=== PATIENT | male | born 1990 | race Two or more races ===

== ENCOUNTER 2019-03-02 04:51 | Inpatient (IN) | payer BC, MEDICAID ==
[~2019-03-02] VITALS: Ht 165.1 cm; Wt 86.2 kg
[2019-03-02 06:05] LABS: Basophils # (auto) 0 uL; Basophils % (auto) 0.8 % (0.0-2.0); Eosinophils # (auto) 0.2 uL; Eosinophils % (auto) 3.8 % (0.0-7.0); Hematocrit 44.2 % (41.0-53.0); Hemoglobin 15.5 g/dL (13.5-17.5); Lymphocytes # (auto) 1.8 uL; Mean Corpuscular Hemoglobin 29.8 pg (28.0-32.0); Mean Corpuscular Hgb Conc. 35.1 g/dL (32.0-36.0); Mean Corpuscular Volume 84.9 fL (80.0-100.0); Monocytes # (auto) 0.4 uL; Monocytes % (auto) 7.9 % (0.0-12.0); Neutrophils # (auto) 3.1 uL; Neutrophils % (auto) 55.5 % (37.0-80.0); Nucleated Red Blood Cells % 0.1 %; Platelet Count (auto) 266 10^3/uL (140-450); Red Cell Distribution Width 13.4 % (11.8-14.3); White Blood Cell 5.5 10^3/uL (4.4-10.8)
[2019-03-02 06:34] LABS: Albumin 4.7 g/dL (3.4-5.0); Calcium 9.7 mg/dL (8.5-10.1); Potassium 3.6 mmol/L (3.5-5.1)
[2019-03-02 06:38] LABS: BUN/Creatinine Ratio 23.1; Bilirubin, Total 0.4 mg/dL (0.2-1.0); Total Protein 8.8 g/dL (6.4-8.2)
[2019-03-02] MEDS ORDERED: SODIUM CHLORIDE 0.9% 1,000 ML IV ONE (07:45)
[2019-03-02] MEDS ORDERED: cefTRIAXone 1GM/50ML D5W 50 ML IV ONE (08:15)
[2019-03-02] MEDS ORDERED: ONDANSETRON HCL 4 MG/2 ML VIAL IV ONE (09:30)
[2019-03-02] MEDS ORDERED: MORPHINE SULF INJ 2 MG/ML SYRINGE 1ML IV ONE (09:30)
[2019-03-02] MEDS ORDERED: ACETAMINOPHEN 500 MG TAB PO PRN (09:45)
[2019-03-02] MEDS ORDERED: SOD CHL 0.9%/ KCL 20MEQ 1,000 ML IV SCH (09:45)
[2019-03-02] MEDS ORDERED: NITROGLYCERIN 0.4 MG SL TAB SL PRN (09:45)
[2019-03-02] MEDS ORDERED: MORPHINE SULF INJ 2 MG/ML SYRINGE 1ML IV PRN ×2 (09:45)
[2019-03-02] MEDS ORDERED: HYDROcodone-ACET 5/325MG TAB PO PRN (09:45)
[2019-03-02] MEDS ORDERED: ONDANSETRON HCL 4 MG/2 ML VIAL IV PRN (09:45)
[2019-03-02] MEDS ORDERED: FAMOTIDINE 20 MG TAB PO SCH (10:00)
[2019-03-02 13:00] VITALS: BP 128/83
[2019-03-02] MEDS ORDERED: metroNIDAZOLE 500MG/100ML 100 ML IV SCH (14:00)
--- NOTE | 2019-03-02 14:05 | NUR ---
AMA Note MARIKA CARDENAS states they want to leave the hospital Against Medical Advice (AMA). Patient encouraged to stay for further treatment/stabilization. MUNIRA DENNY MD notified of patient's wishes. Patient advised of the risks and benefits of leaving AMA. Patient verbalized understanding. Patient encouraged to return to the ER if symptoms do not improve or worsen.
--- NOTE | 2019-03-02 14:07 | NUR ---
COULD NOT OBTAIN INFORMATION FOR THE PATIENT'S ADMISSION. HE INFORMED ME THAT HE DOESN'T NEED TO ANSWER QUESTIONS BECAUSE HE PLANS ON LEAVING THE HOSPITAL AGAINST MEDICAL ADVICE.
[2019-03-03] MEDS ORDERED: LEVOFLOXACIN 500MG 100 ML IV SCH (10:00)
== END 2019-03-02 13:42 | disposition left against medical advice (07) | DRG 446 ==
LOC: ER 04:51 → OVERFLOW 04:52 → CENTRAL 11:25
PROVIDERS: ADMIT Nurse Practitioner Acute Care; ATTEND Nurse Practitioner Acute Care
DX: K81.0 Acute cholecystitis (principal); E66.9 Obesity, unspecified; Z68.31 Body mass index [BMI] 31.0-31.9, adult; K82.8 Other specified diseases of gallbladder; Z53.21 Procedure and treatment not carried out due to patient leaving prior to being seen by health care provider; F14.10 Cocaine abuse, uncomplicated; Z88.0 Allergy status to penicillin; Z88.1 Allergy status to other antibiotic agents
CPT/HCPCS: 36415; 74176; 76705; 80053; 82150; 83690; 85025; 86850; 86900; 86901; G0378; J0696

== ENCOUNTER 2019-03-19 10:59 | Inpatient (IN) | payer BC, MEDICAID ==
[~2019-03-19] VITALS: Ht 165.1 cm; Wt 80.2 kg
[2019-03-19] MEDS ORDERED: SODIUM CHLORIDE 0.9% 1,000 ML IVB ONE (11:14)
[2019-03-19] MEDS ORDERED: PROCHLORPERAZINE EDISYLATE 5 MG/ML 2ML VIAL IV ONE ×2 (11:15→13:45)
[2019-03-19] MEDS ORDERED: HYDROmorphone HCL 2 MG/ML VL IV ONE ×2 (11:15→13:45)
[2019-03-19] MEDS ORDERED: FAMOTIDINE (10MG/ML) 2ML VL IV ONE (11:15)
[2019-03-19 12:23] LABS: Basophils # (auto) 0 uL; Basophils % (auto) 0.4 % (0.0-2.0); Eosinophils # (auto) 0.1 uL; Eosinophils % (auto) 2.3 % (0.0-7.0); Hematocrit 42.9 % (41.0-53.0); Hemoglobin 14.8 g/dL (13.5-17.5); Lymphocytes # (auto) 1.2 uL; Lymphocytes % (auto) 19.7 % (10.0-50.0); Mean Corpuscular Hemoglobin 29.6 pg (28.0-32.0); Mean Corpuscular Hgb Conc. 34.5 g/dL (32.0-36.0); Mean Corpuscular Volume 85.7 fL (80.0-100.0); Monocytes # (auto) 0.4 uL; Monocytes % (auto) 6.5 % (0.0-12.0); Neutrophils # (auto) 4.4 uL; Neutrophils % (auto) 71.1 % (37.0-80.0); Nucleated Red Blood Cells % 0.1 %; Platelet Count (auto) 209 10^3/uL (140-450); Red Cell Distribution Width 13.4 % (11.8-14.3); White Blood Cell 6.2 10^3/uL (4.4-10.8)
[2019-03-19 12:36] LABS: Potassium 3.7 mmol/L (3.5-5.1)
[2019-03-19 12:45] LABS: Albumin 4.2 g/dL (3.4-5.0); BUN/Creatinine Ratio 15.6; Calcium 9.2 mg/dL (8.5-10.1); Total Protein 7.8 g/dL (6.4-8.2)
[2019-03-19] MEDS ORDERED: MORPHINE SULF INJ 2 MG/ML SYRINGE 1ML IV ONE (13:00)
[2019-03-19] MEDS ORDERED: metroNIDAZOLE 500MG/100ML 100 ML IV ONE (14:15)
[2019-03-19] MEDS ORDERED: LORazepam 2MG/ML-1ML VIAL IV ONE (14:30)
[2019-03-19] MEDS ORDERED: cefTRIAXone 1GM/50ML D5W 50 ML IV ONE (14:30)
[2019-03-19] MEDS ORDERED: SODIUM CHLORIDE 0.9% 1,000 ML IV SCH (14:30)
--- NOTE | 2019-03-19 16:00 | NUR ---
MS admit from ER CARDENASMARIKA BLOOD admitted to tele/MS after SBAR received at bedside participated in admission assessment. Patient oriented to ROSARIO WANG, RN primary RN, unit, room, bed, and unit policies regarding patient care and visiting hours. Patient weighed by bedscale and encouraged to call if they need something. All questions and concerns addressed, patient verbalized understanding. Note:
[2019-03-19 16:25] VITALS: BP 159/87
--- NOTE | 2019-03-19 16:25 | NUR ---
pt states he takes no home medications, denies any previous medical history other than previous admission with jonelle and leaving against medical advice, pt states he smokes weed 2-3 times/day and admitted to using cocaine x3 days ago prefered pharmacy confirmed. password INSURANCE [facility] [phone]
[2019-03-19 16:31] VITALS: BP 159/87
[2019-03-19] MEDS: SODIUM CHLORIDE 0.9% 1,000 ML IV SCH ×2 (17:24→22:51)
[2019-03-19] MEDS: MORPHINE SULF INJ 2 MG/ML SYRINGE 1ML IV PRN ×2 (18:24→22:00)
[2019-03-19] MEDS: ONDANSETRON HCL 4 MG/2 ML VIAL IV PRN ×2 (18:25→22:00)
--- NOTE | 2019-03-19 19:32 | NUR ---
OPENING SHIFT NOTE Assumed care of patient who is alert and oriented. Currently on room air with no s/s of SOB/distress or pain. Bed is in low locked position with side rails up x2. Call light is within reach. Patient encouraged to call for assistance when needed. Will continue to monitor for changes PRN.
[2019-03-19 20:00] VITALS: BP 147/73
--- NOTE | 2019-03-19 21:00 | NUR ---
PENDING UA/TOX PATIENT REMINDED THE NEED TO COLLECT URINE SAMPLE SAMPLE STERILE CONTAINER AT BED SIDE PATIENT VERBALIZES UNDERSTANDING
--- NOTE | 2019-03-19 21:30 | NUR ---
PAIN PATIENT VERBALIZES UPPER ABDOMINAL PAIN, NON RADIATING AND RATING IT 10/10. WILL ASSESS AND MEDICATE PER ORDER.
[2019-03-19 22:00] VITALS: BP 147/73
[2019-03-19] MEDS: metroNIDAZOLE 500MG/100ML 100 ML IV SCH (22:00)
--- NOTE | 2019-03-19 22:00 | NUR ---
PATIENT REQUESTING A MEAL PATIENT STATES "I AM HUNGRY AND NEED AT LEAST ONE MEAL, I HAVEN'T EATEN ALL DAY!" EDUCATION ON NPO STATUS AND REASONS BEHIND DIET ORDER PROVIDED, PATIENT VISIBLY UPSET, HOWEVER VERBALIZES UNDERSTANDING. WILL REINFORCE EDUCATION NEEDED.
[2019-03-20] VITALS (7 sets, daily range): BP systolic 136–147; BP diastolic 73–85
[2019-03-20] MEDS: traMADol HCL 50 MG TAB PO PRN (00:42)
[2019-03-20] MEDS: MORPHINE SULF INJ 2 MG/ML SYRINGE 1ML IV PRN ×5 (02:38→21:37)
[2019-03-20] MEDS: ONDANSETRON HCL 4 MG/2 ML VIAL IV PRN ×4 (02:38→21:37)
[2019-03-20] MEDS: SODIUM CHLORIDE 0.9% 1,000 ML IV SCH ×3 (05:05→19:20)
[2019-03-20] MEDS: metroNIDAZOLE 500MG/100ML 100 ML IV SCH ×3 (06:18→21:37)
[2019-03-20 06:40] LABS: Basophils # (auto) 0 uL; Basophils % (auto) 0.4 % (0.0-2.0); Eosinophils # (auto) 0 uL; Hematocrit 42.5 % (41.0-53.0); Hemoglobin 14.9 g/dL (13.5-17.5); Lymphocytes # (auto) 0.6 uL; Lymphocytes % (auto) 4.9 % (10.0-50.0); Mean Corpuscular Hemoglobin 29.7 pg (28.0-32.0); Mean Corpuscular Hgb Conc. 35.1 g/dL (32.0-36.0); Mean Corpuscular Volume 84.6 fL (80.0-100.0); Monocytes # (auto) 0.5 uL; Neutrophils # (auto) 11.5 uL; Neutrophils % (auto) 90.7 % (37.0-80.0); Platelet Count (auto) 223 10^3/uL (140-450); Red Blood Cells 5.02 10^6/uL (4.5-5.90); Red Cell Distribution Width 13.3 % (11.8-14.3); White Blood Cell 12.7 10^3/uL (4.4-10.8)
[2019-03-20 06:50] LABS: INR 0.99 (0.9-1.15)
[2019-03-20 06:53] LABS: Potassium 4.3 mmol/L (3.5-5.1)
--- NOTE | 2019-03-20 06:56 | NUR ---
UA COLLECTED AND SENT TO LAB
[2019-03-20 07:08] LABS: Albumin 3.8 g/dL (3.4-5.0); BUN/Creatinine Ratio 17.5; Bilirubin, Total 2.4 mg/dL (0.2-1.0); Calcium 8.5 mg/dL (8.5-10.1); Total Protein 7.4 g/dL (6.4-8.2)
--- NOTE | 2019-03-20 07:15 | NUR ---
OPEN SHIFT REPORT RECEIVED REPORT ON PATIENT. PT AWAKE AND ALERT LAYING IN SEMI FOWLERS POSITION. REMINDED PT TO CONTINUE NPO STATUS TODAY. VERBALIZED THE POC TO PT REGARDING THE SURGICAL AND GI CONSULTS FOR TODAY, PT VERBALIZED UNDERSTANDING. BED IS LOCKED IN LOWEST POSITION, WITH 2 SIDE RAILS UP AND THE CALL LIGHT IS WITH IN REACH.
[2019-03-20 07:26] LABS: Alcohol, Urine < 3.0 mg/dL (0-5); Amphetamine Screen, Urine POSITIVE (NEGATIVE); Barbiturate Scree,Urine NEGATIVE (NEGATIVE); Benzodiazephine Screen, Urine NEGATIVE (NEGATIVE); Cannabinoid Screen, Urine POSITIVE (NEGATIVE); Cocaine Screen, Urine NEGATIVE (NEGATIVE); Opiate Scree,Urine POSITIVE (NEGATIVE); Phencyclidine Screen, Urine NEGATIVE (NEGATIVE)
--- NOTE | 2019-03-20 07:30 | NUR ---
CARE ENDORSED TO ANYA ALATORRE
[2019-03-20 07:31] LABS: Urine Bacteria NONE SEEN /hpf (None Seen); Urine Blood Negative /uL (Negative); Urine Mucus FEW (None Seen); Urine Specific Gravity 1.024 (1.001-1.035); Urine WBC 5 /hpf (0 - 3)
[2019-03-20] MEDS: PANTOPRAZOLE 40 MG/10 ML VIAL INJ IV SCH (10:00)
[2019-03-20] MEDS: cefTRIAXone 1GM/50ML D5W 50 ML IV SCH (10:17)
--- NOTE | 2019-03-20 11:32 | NUR ---
NURSING NOTES ALL NURSING NOTES ENTERED INTO COMPUTER AT 0930 WERE COMPLETED WITH PATIENT BY 0800, ENTERED IN ON WRONG TIME
--- NOTE | 2019-03-20 18:45 | NUR ---
Closing Note Patient in bed, shows no signs of distress at this time. Bed in lowest locked position side rails up x2 and call light within reach.
[2019-03-21] MEDS: SODIUM CHLORIDE 0.9% 1,000 ML IV SCH ×4 (01:00→20:36)
[2019-03-21] MEDS: MORPHINE SULF INJ 2 MG/ML SYRINGE 1ML IV PRN ×3 (01:57→23:28)
[2019-03-21] MEDS: ONDANSETRON HCL 4 MG/2 ML VIAL IV PRN ×3 (01:57→23:28)
[2019-03-21 04:36] LABS: Basophils # (auto) 0 uL; Basophils % (auto) 0.1 % (0.0-2.0); Eosinophils # (auto) 0.1 uL; Eosinophils % (auto) 0.3 % (0.0-7.0); Hematocrit 42.5 % (41.0-53.0); Hemoglobin 14.4 g/dL (13.5-17.5); Lymphocytes # (auto) 0.8 uL; Lymphocytes % (auto) 5.3 % (10.0-50.0); Mean Corpuscular Hemoglobin 29.5 pg (28.0-32.0); Mean Corpuscular Volume 86.8 fL (80.0-100.0); Monocytes # (auto) 0.9 uL; Monocytes % (auto) 5.4 % (0.0-12.0); Neutrophils % (auto) 88.9 % (37.0-80.0); Platelet Count (auto) 200 10^3/uL (140-450); Red Blood Cells 4.89 10^6/uL (4.5-5.90); Red Cell Distribution Width 13.5 % (11.8-14.3); White Blood Cell 15.8 10^3/uL (4.4-10.8)
[2019-03-21 04:54] LABS: Calcium 8.1 mg/dL (8.5-10.1)
[2019-03-21 05:00] VITALS: BP 141/85
[2019-03-21 05:02] LABS: BUN/Creatinine Ratio 10.7
[2019-03-21] MEDS: metroNIDAZOLE 500MG/100ML 100 ML IV SCH ×3 (06:02→21:32)
--- NOTE | 2019-03-21 08:00 | NUR ---
Opening Shift Note Assumed care of patient, awake, alert and oriented X4. No S/S of distress/SOB or pain. IV to right antecubital, 20 gauge, patent and infusing 0.9% NS @ 150 ml/hr. Instructed on POC and to call for assist PRN, verbalized understanding. bed locked, in lowest position, call light within reach, will continue to monitor for changes Q1hr and PRN.
[2019-03-21 09:00] VITALS: BP 149/91
[2019-03-21] MEDS: cefTRIAXone 1GM/50ML D5W 50 ML IV SCH (09:19)
[2019-03-21] MEDS: PANTOPRAZOLE 40 MG/10 ML VIAL INJ IV SCH (11:18)
--- NOTE | 2019-03-21 11:19 | NUR ---
GI Dr Lay at bedside for GI follow up, new orders received and followed through. Patient updated on plan of care, verbalized understanding.
--- NOTE | 2019-03-21 11:57 | NUR ---
ROUNDS Dr Rick Vasquez at bedside for rounds, new orders received and followed through. Patient updated on plan of care, verbalized understanding.
[2019-03-21 13:00] VITALS: BP 154/88
[2019-03-21] MEDS: traMADol HCL 50 MG TAB PO PRN ×2 (13:58→19:45)
[2019-03-21 17:17] VITALS: BP 139/77
--- NOTE | 2019-03-21 19:00 | NUR ---
Opening Shift Note Assumed care of patient, awake and alert. No S/S of distress/SOB or pain. Instructed on POC and to call for assist PRN, will continue to monitor for changes Q1hr and PRN.
--- NOTE | 2019-03-21 19:13 | NUR ---
Care endorsed to LANDRY Stahl, night nurse.
[2019-03-21 22:34] VITALS: BP 145/89
[2019-03-22] MEDS: traMADol HCL 50 MG TAB PO PRN ×3 (02:48→22:09)
[2019-03-22] MEDS: SODIUM CHLORIDE 0.9% 1,000 ML IV SCH ×2 (03:56→17:05)
[2019-03-22 05:30] VITALS: BP 151/80
[2019-03-22] MEDS: metroNIDAZOLE 500MG/100ML 100 ML IV SCH ×3 (05:34→22:10)
[2019-03-22] MEDS: MORPHINE SULF INJ 2 MG/ML SYRINGE 1ML IV PRN ×4 (05:34→23:19)
--- NOTE | 2019-03-22 05:35 | NUR ---
IV removal IV to right AC DC'd with sterile technique, catheter fully intact. Pressure dressing applied to site. Patient tolerated procedure well.
--- NOTE | 2019-03-22 05:36 | NUR ---
IV insertion IV access to left hand obtained, via clean sterile technique by inserting 22 gauge catheter after first attempt. IV secured properly. No trauma to site. Patient tolerated well.
[2019-03-22 07:11] LABS: Basophils # (auto) 0 uL; Basophils % (auto) 0.3 % (0.0-2.0); Eosinophils # (auto) 0.1 uL; Eosinophils % (auto) 0.6 % (0.0-7.0); Hematocrit 41.2 % (41.0-53.0); Hemoglobin 14.1 g/dL (13.5-17.5); Lymphocytes % (auto) 6.2 % (10.0-50.0); Mean Corpuscular Hemoglobin 29.4 pg (28.0-32.0); Mean Corpuscular Hgb Conc. 34.3 g/dL (32.0-36.0); Mean Corpuscular Volume 85.8 fL (80.0-100.0); Monocytes % (auto) 6.2 % (0.0-12.0); Neutrophils # (auto) 14.5 uL; Neutrophils % (auto) 86.7 % (37.0-80.0); Platelet Count (auto) 221 10^3/uL (140-450); Red Cell Distribution Width 13.6 % (11.8-14.3); White Blood Cell 16.7 10^3/uL (4.4-10.8)
[2019-03-22 07:25] LABS: Potassium 3.7 mmol/L (3.5-5.1)
[2019-03-22 07:31] LABS: Albumin 3.3 g/dL (3.4-5.0); BUN/Creatinine Ratio 11.9; Bilirubin, Total 0.9 mg/dL (0.2-1.0)
--- NOTE | 2019-03-22 08:00 | NUR ---
Opening Shift Note Assumed care of patient, awake, alert and oriented X4. No S/S of distress/SOB or pain. IV to left hand, 22 gauge, patent and infusing 0.9% NS @ 150 ml/hr. Instructed on POC and to call for assist PRN, verbalized understanding. bed locked, in lowest position, call light within reach, will continue to monitor for changes Q1hr and PRN.
[2019-03-22 08:52] VITALS: BP 163/90
[2019-03-22] MEDS: cefTRIAXone 1GM/50ML D5W 50 ML IV SCH (10:42)
[2019-03-22] MEDS: PANTOPRAZOLE 40 MG/10 ML VIAL INJ IV SCH (10:43)
--- NOTE | 2019-03-22 11:24 | NUR ---
ROUNDS Dr Rick Vasquez at bedside for rounds, new orders received and followed through. Patient updated on plan of care, verbalized understanding.
--- NOTE | 2019-03-22 12:40 | NUR ---
NUTRITION ASSESSMENT NOTES Please refer to link notes of nutrition screen form filed under the intervention section of the plan of care for further details. Est. Needs: 1600 kcal to 2000 kcal (20-25 kcal/kgBW), 64 gms to 80 gms pro (0.8-1.0 gms/kgBW). Will continue to monitor pertinent labs and reassess nutrient need prn Thank you. Addendum: 03/22/19 at [address] Amended: Links added.
[2019-03-22 13:00] VITALS: BP 143/77
[2019-03-22 17:00] VITALS: BP 149/79
--- NOTE | 2019-03-22 19:17 | NUR ---
Care endorsed to LANDRY Arroyo, night nurse.
--- NOTE | 2019-03-22 19:30 | NUR ---
Opening Shift Note Assumed care of patient, patient resting in bed comfortably, even and unlabored respirations noted at 18 breaths/min. No S/S of distress or pain. Call light within reach, room free of clutter, will continue to monitor. Signed: 03/22/19 at 2031 by VERO DURANT SN <Co-Signature Required> Co-Signed: 03/22/19 at 2031 by HONEY INMAN RN RN
--- NOTE | 2019-03-22 20:45 | NUR ---
Elevated temp per RISK MANAGEMENT PROFESSIONAL Notified of temperature of 100.1 by RISK MANAGEMENT PROFESSIONAL, patient assessed, patient resting in bed comfortably and denies any chills at this time. Patient states "I feel fine, I had a couple heat packs on me that made me warm". Will reassess temperature. Signed: 03/22/19 at 2300 by VERO DURANT SN <Co-Signature Required> Co-Signed: 03/22/19 at 2300 by HONEY INMAN RN RN
--- NOTE | 2019-03-22 21:00 | NUR ---
Temp reassessment Temperature within normal limits, reading 98.9. Patient resting comfortably in bed, will continue to round Q1H and PRN. Signed: 03/22/19 at 2302 by VERO DURANT SN <Co-Signature Required> Co-Signed: 03/22/19 at 2302 by HONEY INMAN RN RN
[2019-03-22] MEDS: ONDANSETRON HCL 4 MG/2 ML VIAL IV PRN (22:10)
[2019-03-22 23:37] VITALS: BP 149/83
--- NOTE | 2019-03-23 00:22 | NUR ---
ENDORSED CARE TO SHELBIE RN. PATIENT RESTING IN BED COMFORTABLY WITH EVEN AND UNLABORED RESPIRATIONS OF 18BP, NO S/S OF PAIN OR DISTRESS AT THIS TIME,CALL LIGHT WITHIN REACH.
[2019-03-23] MEDS: ONDANSETRON HCL 4 MG/2 ML VIAL IV PRN ×2 (03:22→10:04)
[2019-03-23] MEDS: MORPHINE SULF INJ 2 MG/ML SYRINGE 1ML IV PRN ×2 (03:23→10:04)
[2019-03-23] MEDS: SODIUM CHLORIDE 0.9% 1,000 ML IV SCH ×3 (03:27→10:23)
[2019-03-23 05:09] VITALS: BP 143/83
[2019-03-23] MEDS: metroNIDAZOLE 500MG/100ML 100 ML IV SCH ×2 (05:39→13:34)
[2019-03-23 06:18] LABS: Basophils # (auto) 0.1 uL; Basophils % (auto) 0.4 % (0.0-2.0); Eosinophils # (auto) 0.2 uL; Eosinophils % (auto) 1.6 % (0.0-7.0); Hematocrit 39.5 % (41.0-53.0); Hemoglobin 13.3 g/dL (13.5-17.5); Lymphocytes # (auto) 1.2 uL; Lymphocytes % (auto) 9.5 % (10.0-50.0); Mean Corpuscular Hgb Conc. 33.8 g/dL (32.0-36.0); Mean Corpuscular Volume 85.9 fL (80.0-100.0); Monocytes # (auto) 1.1 uL; Monocytes % (auto) 8.9 % (0.0-12.0); Neutrophils # (auto) 9.6 uL; Neutrophils % (auto) 79.6 % (37.0-80.0); Nucleated Red Blood Cells % 0.1 %; Platelet Count (auto) 232 10^3/uL (140-450); Red Cell Distribution Width 13.4 % (11.8-14.3); White Blood Cell 12.1 10^3/uL (4.4-10.8)
[2019-03-23 06:33] LABS: Calcium 8.3 mg/dL (8.5-10.1); Potassium 3.8 mmol/L (3.5-5.1)
[2019-03-23 06:36] LABS: BUN/Creatinine Ratio 11.3; Bilirubin, Total 0.6 mg/dL (0.2-1.0); Total Protein 6.6 g/dL (6.4-8.2)
--- NOTE | 2019-03-23 07:55 | NUR ---
OPENING SHIFT NOTE ASSUMED CARE OF PT. PT IS AWAKE AND ALERT. NO SOB OR SIGNS OF DISTRESS NOTED. INSTRUCTED ON POC AND TO CALL FOR ASSISTANCE IF NEEDED. BED IN LOWEST POSITION WITH SIDE RAILS UP X2. WILL CONTINUE TO MONITOR.
[2019-03-23 09:00] VITALS: BP 142/78
[2019-03-23] MEDS: cefTRIAXone 1GM/50ML D5W 50 ML IV SCH (10:03)
[2019-03-23] MEDS: PANTOPRAZOLE 40 MG/10 ML VIAL INJ IV SCH (10:04)
--- NOTE | 2019-03-23 10:30 | NUR ---
DR AT BEDSIDE DR AVILA SPOKE WITH PATIENT. GAVE DISCHARGE ORDERS. WILL CARRY OUT.
[2019-03-23 12:39] VITALS: BP 142/84
--- NOTE | 2019-03-23 13:20 | NUR ---
Discharge instructions given as ordered. Encourage to follow up with PCP as instructed. All questions and concerns addressed. Patient verbalized understanding. Medication reconciliation form completed and copy given to patient. IV removed with catheter intact, pressure dressing applied. Patient LEFT with all personal belongings. No distress noted at time of departure.
== END 2019-03-23 13:30 | disposition home or self-care (01) | DRG 438 ==
LOC: ER 10:59 → OVERFLOW 11:00 → WEST WING 15:52
PROVIDERS: ADMIT Internal Medicine; ATTEND Family Medicine
DX: K85.10 Biliary acute pancreatitis without necrosis or infection (principal); N17.0 Acute kidney failure with tubular necrosis; K80.62 Calculus of gallbladder and bile duct with acute cholecystitis without obstruction; R65.10 Systemic inflammatory response syndrome (SIRS) of non-infectious origin without acute organ dysfunction; N18.9 Chronic kidney disease, unspecified; F12.10 Cannabis abuse, uncomplicated; Z88.0 Allergy status to penicillin; Z88.1 Allergy status to other antibiotic agents; Z83.3 Family history of diabetes mellitus
CPT/HCPCS: 36415; 74181; 76705; 80048; 80053; 80307; 81001; 82150; 83690; 84484; 85025; 85610; 85730; 87081; 93005; 94761; 96365; 96375; 96376; C9113; G0378; J0696; J2405; J3490